=== PATIENT | female | born 2005 | race Caucasian/White ===

== ENCOUNTER 2024-12-28 08:30 | Outpatient (RCR) | payer OTHER, SELFPAY | END 2025-04-27 23:59 | disposition home or self-care (01) | PROVIDERS: PCP Obstetrics & Gynecology; Visit Provider Obstetrics & Gynecology | DX: N94.10 Unspecified dyspareunia (principal); Z51.89 Encounter for other specified aftercare | CPT/HCPCS: 97112; 97140; 97161 ==

== ENCOUNTER 2025-03-19 21:01 | Emergency (ER) | payer OTHER, SELFPAY ==
--- OUTSIDE RECORDS SUMMARY | 2025-03-19 21:03 | XMS_ITS | Clinical Summary ---
Author Organization [facility] Address [address] [address] Phone Care Team Providers Care Water Plumber Name Role Phone Unavailable Primary Care Provider Unavailabl e Immunizations Name Administration Dates Next Due COVID-19 Vaccine: Pfizer Dos e 1 (Purple- 12+ Yrs) [facility] 03/21/2021 COVID-19 Vaccine: Pfizer Dos e 2 (Purple- 12+ Yrs) [facility] 04/11/2021 Influenza Vaccine (6 months - 64 Years) Quad PF Syringe (Flu Clinic) 12/14/2017(Deferred: Invalid Dose - [place] Excursion Please refer to patient communication in Spring 2019; scope of potential impact to this patient only includes flu vaccine(s).) Tdap (7 years and older) 04/28/2023 Social History Tobacco Use Types Packs/Day Years Used Date Smoking Tobacco: Never Assessed Comments Unknown Sex and Gender Information Value Date Recorded Sex Assigned at Not on file Legal Sex Female 7:16 PM LEAD SLOT TECHNICIAN Gender Identity Not on file Sexual Orientation Not on file Plan of Treatment Health Maintenance Due Date Last Done Comments Cervical Cancer Screening 2003 Last pap w/ HPV Testing 2003 Last pap w/o HPV Testing 2003 HPV Vaccine (Standing Order) (1 - 3-dose series) 2018 Chlamydia Screening 2019 Meningococcal B Vaccine (Sta nding Order) (1 of 2 - Standard) 2019 ADULT COMPLETE PHYSICAL AGE 19-21 YRS 2022 Hepatitis B Vaccine (Standin g Order) (1 of 3 - 19+ 3-dose series) 2022 TETANUS (Standing Order) 04/28/2033 04/28/2023 PERTUSSIS (Standing Order) Completed 04/28/2023 Pneumococcal/PCV20 Vaccine: Pediatrics (2-5 yrs) and At-Risk Patients (6-49 yrs) (Standing Order) Aged Out No longer eligible b ased on patient's age to complete this topic Insurance [facility]
--- OUTSIDE RECORDS SUMMARY | 2025-03-19 21:03 | XMS_ITS | Encounter Summary ---
Author Organization [facility] Address [address] [place] [address] [address] [place] [address] Care Team Providers Care Correctional Supervisor Lieutenant Name Role Phone Roberto Josefina Katie HINOJOSA-LPC Primary Care Provider Josefina Mejia APRN-LPC Unavailable [phone] Encounter Details Date Type Department Care Team (Late Contact Info) Description 02/14/2025 Orders Only [facility] [address] [place] [address] Di Buckner LPN [address] [place], [place] [id number] Social History Tobacco Use Types Packs/Day Years Used Date Smoking Tobacco: Never Smokeless Tobacco: Never Comments:No Vape Alcohol Use Standard Drinks/Week Comments No 0 (1 standard drink = 0.6 oz pur e alcohol) PHQ-2 Answer Date Recorded PHQ-2 Total 0 06/25/2024 Abuse/Neglect Answer Date Recorded Member of Clubs or Organizations Not on file 08/30/2024 Does the patient display any signs or symptoms of abuse or neglect? No 08/30/2024 Comments No Sex and Gender Information Value Date Recorded Sex Assigned at Female 10/19/2019 12:05 PM BREAD PANNER Legal Sex Female 4:52 AM CDT Gender Identity Female 10/19/2019 12:05 PM BREAD PANNER Sexual Orientation Not on file documented as of this encounter Plan of Treatment Upcoming Encounters Date Type Department Care Team (Late Contact Info) Description 06/02/2025 3:20 PM CDT Office Visit [facility] [address] [place] [address] [place] [address] Lorena De Luna MD [address] [place] [address] Discharge Disposition: Home, Self Care documented as of this encounter Visit Diagnoses Not on filedocumented in this encounter Care Teams Correctional Supervisor Lieutenant Relationship Specialty Start Date End Date Josefina Mejia APRN-CNP [address] [place] [id number] PCP - General PICKING MACHINE OPERATOR HELPER - Family Medicine 02/11/23 Josefina Mejia APRN-CNP [address] [place] [id number] PCP - Attributed Provider 03/11/23 documented as of this encounter
--- OUTSIDE RECORDS SUMMARY | 2025-03-19 21:03 | XMS_ITS | Encounter Summary ---
Author Organization [facility] Address [address] [place] [address] [address] [place] [address] Care Team Providers Care Assistant Shift Supervisor Name Role Phone Josefina Mejia HISTORIC SITES REGISTRAR-DIE GRINDER Primary Care Provider Josefina Mejia HISTORIC SITES REGISTRAR-DIE GRINDER Unavailable [phone] Encounter Details Date Type Department Care Team (Late st Contact Info) Description 02/14/2025 10:30 AM CDT Office Visit [facility] [address] [place] [address] Josefina Mejia, HISTORIC SITES REGISTRAR-DIE GRINDER [address] [place] [address] [place] [address] Adjustment disorder with depressed mood (Primary Dx); Psychophysiological insomnia; JULIANA (generalized anxiety disorder); Intractable chronic migraine without aura and without status migrainosus Discharge Disposition: Home, Self Care Social History Tobacco Use Types Packs/Day Years [...] Sex Assigned at Female 10/19/2019 12:05 PM PATIENT ASSISTANT Legal Sex Female 4:52 AM CDT Gender Identity Female 10/19/2019 12:05 PM PATIENT ASSISTANT Sexual Orientation Not on file documented as of this encounter Progress Notes * Josefina Mejia Katie, HISTORIC SITES REGISTRAR-DIE GRINDER - 02/14/2025 10:25 AM CDT Assessment / Plan Adjustment disorder with depressed mood - buPROPion (WELLBUTRIN XL) 150 mg tablet (24 hr); Take 1 tablet (150 mg) by mouth 1 time per day Dispense: 60 tablet; Refill: 1 Psychophysiological insomnia - hydrOXYzine (ATARAX) 25 mg tablet; Take 0.5-1 tablets (12.5-25 mg) by mouth every 6 hours as needed for other (Specify) (anixety/insomnia) Dispense: 30 tablet; Refill: 3 JULIANA (generalized anxiety disorder) - escitalopram (LEXAPRO) 20 mg tablet; Take 1.5 tablets (30 mg) by mouth 1 time per day Dispense: 135 tablet; Refill: 0 Intractable chronic migraine without aura and without status migrainosus Other orders - FOLLOW UP FAMILY MEDICINE; Future Plan: - Continue lexapro 30mg daily - Continue hydroxyzine PRN - Continue prazosin at bedtime - Continue therapy - Start wellbutrin XL 150mg daily in the morning. Avoid binge drinking. - Monitor headaches for now, reach out to neurology if continue to worsen Recheck in 6 weeks, okay for telemedicine Follow Up Orders Placed This Encounter Procedures FOLLOW UP FAMILY MEDICINE Standing Status: Future Expected Date: 03/28/2025 Expiration Date: 08/16/2026 Reason for Follow Up: Clinic Visit Who is this follow-up with?: Me Reason for Follow Up Comment (VISIBLE TO PATIENT): telemedicine medication recheck Discussed assessed disease process(s). Patient verbalized understanding on recommendations and education. Wishes to proceed with above plan. Had no further concerns or complaints. Encouraged patient to call clinic should any questions arise or if symptoms worsen/do not improve. Benefits risks and side effects of new medications reviewed. After visit summary was given to patient. HPI / History / ROS HPI Kristine Guajardo is a 19yr old female who presents for a telemedicine visit for a recheck of mood/headaches. She does follow with neurology, currently taking topamax, imitrex,and emgality. Start emgality in August. She feels headaches have gotten worse. She is currently taking lexapro 30mg daily for her mod. She also takes prazosin 4mg at bedtime for nightmares. She has hydroxyzine to use PRN as well (uses nightly). She reports more symptoms of depression since her spring started. She does question some situational depression due to upcoming move/graduation. She is not enjoying activities she once did. Denies SI/HI. Does therapy every 1-2 weeks, thru her school. She's had a few panic attacks as well. Telemedicine visit started 1026 and ended 1033. City and State patient is located in; [place], [place], patient's home City and State provider is located in; [place], [place]. Patient was seen via telemedicine due to Patient Preference. Mode of transmission was interactive audio and video except if done by radiology then store and forward. Medications Outpatient Medications Prior to Visit Medication Sig Dispense Refill triamcinolone acetonide (KENALOG,ARISTOCORT) 0.1 % ointment Apply topically 2 times a day 30 g 1 topiramate (TOPAMAX) 100 mg tablet TAKE 1 TABLET(100 MG) BY MOUTH TWICE DAILY 60 tablet 0 prazosin (MINIPRESS) 2 MG CAPS TAKE 2 CAPSULES(4 MG) BY MOUTH EVERY NIGHT AT BEDTIME 60 capsule 0 escitalopram (LEXAPRO) 20 mg tablet TAKE 1 AND 1/2 TABLETS(30 MG) BY MOUTH DAILY 45 tablet 0 galcanezumab-gnlm (EMGALITY) 120 MG/ML subcutaneous injection (pen) Inject 240 mg under the skin 1 time a MONTH Loading dose 2 mL 0 galcanezumab-gnlm (EMGALITY) 120 MG/ML subcutaneous injection (pen) Inject 120 mg under the skin Once every 4 (four) WEEKS Maintenance dose, start 1 month after loading dose 1 mL 12 sumatriptan (IMITREX) 100 mg tablet Take 1 tablet (100 mg) by mouth as needed for migraine Take at onset of headache, may repeat in 2 hours if needed. 12 tablet 12 lidocaine (XYLOCAINE) 2 % GEL Apply a pea-sized amount to the affected area daily prn 85 mL 1 drospirenone-ethinyl estradiol (SHOSHANA) 3-0.02 mg tablet Take 1 tablet by mouth 1 time per day Skip placebo week. 84 tablet 4 hydrOXYzine (ATARAX) 25 mg tablet Take 0.5-1 tablets (12.5-25 mg) by mouth every 6 hours as needed for other (Specify) (anixety/insomnia) 30 tablet 3 tacrolimus (PROTOPIC) 0.1 % ointment Apply to affected areas of eyelids and underarms twice daily as needed. 30 g 2 ketoconazole (NIZORAL) 2% shampoo Lather into a damp scalp and ears once every 72 hours, allow to sit on for 5-10 minutes, then rinse out. Complete for 4 weeks, then 1-2 times per week for prevention. 240 mL 6 betamethasone dipropionate (DIPROSONE) 0.05 % LOTN Apply to the scalp every night at bedtime for 2 weeks, then 3 times weekly as needed. Avoid use on the face. 60 mL 1 melatonin 3 mg tablet Take 3 mg by mouth as needed. No facility-administered medications prior to visit. Allergies No Known Allergies ROS Review of Systems ROS as indicated in HPI. Physical / Results LMP: 02/06/2023 Physical Exam Constitutional: Appearance: Normal appearance. Pulmonary: Effort: Pulmonary effort is normal. Neurological: General: No focal deficit present. Mental Status: She is alert and oriented to person, place, and time. Psychiatric: Mood and Affect: Mood normal. Behavior: Behavior normal. Thought Content: Thought content normal. Judgment: Judgment normal. documented in this encounter Plan of Treatment Upcoming Encounters Date Type Department Care Team (Late st Contact Info) Description 06/02/2025 3:20 PM CDT Office Visit [address] [place] [address] Lorena De Luna MD [address] [place] [id number] Discharge Disposition: Home, Self Care documented as of this encounter Visit Diagnoses Diagnosis Adjustment disorder with depressed mood- Primary Psychophysiological insomnia Persistent disorder of initiating or maintaining sleep JULIANA (generalized anxiety disorder) Generalized anxiety disorder Intractable chronic migraine without aura and without status migrainosus Chronic migraine without aura, with intractable migraine, so stated, without mention of status migrainosus documented in this encounter Care Teams Assistant Shift Supervisor Relationship Specialty Start Date End Date Josefina Mejia APRN-AMY [address] [place] [address] PCP - General SHOE MAKER - Family Medicine 02/11/23 Josefina Mejia APRN-AMY [address] [place] [address] PCP - Attributed Provider 03/11/23 documented as of this encounter
--- OUTSIDE RECORDS SUMMARY | 2025-03-19 21:03 | XMS_ITS | Encounter Summary ---
Author Organization [facility] Address [address] [place] [address] [address] [place] [address] Care Team Providers Care Handle Sander Operator Name Role Phone Josefina Mejia APRN-AMY Primary Care Provider Josefina Mejia APRN-RATE INSERTER Unavailable [phone] Reason for Visit * Reason Comments Refill Request Encounter Details Date Type Department Care Team (Late st Contact Info) Description 03/03/2025 Refill [facility] [address] [place] [address] Josefina Mejia, BANQUET SUPERVISOR-RATE INSERTER [facility] [place] [address] Refill Request Social History Tobacco Use Types Packs/Day Years [...] Sex Assigned at Female 10/19/2019 12:05 PM CAFE HELPER Legal Sex Female 4:52 AM CDT Gender Identity Female 10/19/2019 12:05 PM CAFE HELPER Sexual Orientation Not on file documented as of this encounter Nursing Notes * Josefina Mejia APRN-CNP - 03/03/2025 2:19 PM CDT Refill sent, due for recheck appointment. * Di Buckner LPN - 03/03/2025 1:50 PM CDT Refill request for: prazosin (MINIPRESS) 2 MG CAPS Last appt: 02/14/25 Next appt: none Last refill: 01/27/25 60 tabs x 0 Refill request for: topiramate (TOPAMAX) 100 mg tablet Last refill: 01/27/25 60 tabs x 0 Plan: - Continue lexapro 30mg daily - [...] After visit summary was given to patient. documented in this encounter Plan of Treatment Upcoming Encounters Date Type Department Care Team (Late st Contact Info) Description 06/02/2025 3:20 PM CDT Office Visit [address] [place] [id number] Lorena De Luna MD [address] [place] [address] Discharge Disposition: Home, Self Care documented as of this encounter Visit Diagnoses Diagnosis Nightmares Other dysfunctions of sleep stages or arousal from sleep Chronic nonintractable headache, unspecified headache type documented in this encounter Care Teams Handle Sander Operator Relationship Specialty Start Date End Date Josefina Mejia APRN-CNP [address] [facility] [place] [address] PCP - General WHEEL FILLER - Family Medicine 02/11/23 Josefina Mejia APRN-CNP [address] [facility] [place] [address] PCP - Attributed Provider 03/11/23 documented as of this encounter
--- OUTSIDE RECORDS SUMMARY | 2025-03-19 21:04 | XMS_ITS | Clinical Summary ---
Author Organization [facility] Address [address] [place] [address] [address] [place] [address] Care Team Providers Care Pasteuriser Operator Name Role Phone Josefina Mejia APRN-ELECTRON GUN ASSEMBLER Primary Care Provider Josefina Mejia APRN-ELECTRON GUN ASSEMBLER Unavailable [phone] Allergies No known active allergies Medications melatonin 3 mg tablet Take 3 mg by mouth as needed. Active tacrolimus (PROTOPIC) 0.1 % ointmentIndicatio ns:Atopic dermatitis, unspecified type Apply to affected areas of eyelids and underarms twice daily as needed. 30 g 2 023 Active ketoconazole (NIZORAL) 2% shampooIndication s:Atopic dermatitis, unspecified type Lather into a damp scalp and ears once every 72 hours, allow to sit on for 5-10 minutes, then rinse out. Complete for 4 weeks, then 1-2 times per week for prevention. 240 mL 6 023 Active betamethasone dipropionate (DIPROSONE) 0.05 % LOTNIndications:A topic dermatitis, unspecified type Apply to the scalp every night at bedtime for 2 weeks, then 3 times weekly as needed. Avoid use on the face. 60 mL 1 023 Active drospirenone-ethi nyl estradiol (SHOSHANA) 3-0.02 mg tabletIndications :Acne vulgaris Take 1 tablet by mouth 1 time per day Skip placebo week. 84 tablet 4 024 Active sumatriptan (IMITREX) 100 mg tabletIndications :Intractable chronic migraine without aura and without status migrainosus Take 1 tablet (100 mg) by mouth as needed for migraine Take at onset of headache, may repeat in 2 hours if needed. 12 tablet 12 024 Active lidocaine (XYLOCAINE) 2 % GELIndications:Dy spareunia in female Apply a pea-sized amount to the affected area daily prn 85 mL 1 024 Active galcanezumab-gnlm (EMGALITY) 120 MG/ML subcutaneous injection (pen)Indications: Intractable chronic migraine without aura and without status migrainosus Inject 120 mg under the skin Once every 4 (four) WEEKS Maintenance dose, start 1 month after loading dose 1 mL 12 024 Active triamcinolone acetonide (KENALOG,ARISTOCO RT) 0.1 % ointmentIndicatio ns:Eczema of face Apply topically 2 times a day 30 g 1 025 Active buPROPion (WELLBUTRIN XL) 150 mg tablet (24 hr)Indications:Ad justment disorder with depressed mood Take 1 tablet (150 mg) by mouth 1 time per day 60 tablet 1 025 2025 Active hydrOXYzine (ATARAX) 25 mg tabletIndications :Psychophysiologi miles insomnia Take 0.5-1 tablets (12.5-25 mg) by mouth every 6 hours as needed for other (Specify) (anixety/insom mary) 30 tablet 3 025 Active escitalopram (LEXAPRO) 20 mg tabletIndications :JULIANA (generalized anxiety disorder) Take 1.5 tablets (30 mg) by mouth 1 time per day 135 tablet 025 Active ondansetron (ZOFRAN ODT) 4 mg dispersible tablet Take 4 mg by mouth every 6 hours as needed for nausea or vomiting 025 Active prazosin (MINIPRESS) 2 MG CAPSIndications:N ightmares TAKE 2 CAPSULES(4 MG) BY MOUTH EVERY NIGHT AT BEDTIME 60 capsule 025 Active topiramate (TOPAMAX) 100 mg tabletIndications :Chronic nonintractable headache, unspecified headache type TAKE 1 TABLET(100 MG) BY MOUTH TWICE DAILY 60 tablet 025 Active topiramate (TOPAMAX) 100 mg tabletIndications :Chronic nonintractable headache, unspecified headache type TAKE 1 TABLET(100 MG) BY MOUTH TWICE DAILY 60 tablet 025 2024 Discontinued prazosin (MINIPRESS) 2 MG CAPSIndications:N ightmares TAKE 2 CAPSULES(4 MG) BY MOUTH EVERY NIGHT AT BEDTIME 60 capsule 025 2024 Discontinued Active Problems Problem Noted Date Diagnosed Date Generalized anxiety disorder 09/20/2019 Resolved Problems Problem Noted Date Diagnosed Date Resolved Date Infective otitis externa 09/25/201009/2012 Subjective tinnitus 09/25/2010 10/27/20 12 Encounters Date Type Department Care Team Description 03/03/[address] [address] Josefina Mejia APPLICATION PROGRAMMER ANALYST-ELECTRON GUN ASSEMBLER Refill Request 02/14/2025 10:30 AM CDT Office Visit [address] [address] Josefina Mejia, APPLICATION PROGRAMMER ANALYST-AMY Adjustment disorder with depressed mood (Primary Dx); Psychophysiological insomnia; JULIANA (generalized anxiety disorder); Intractable chronic migraine without aura and without status migrainosus Discharge Disposition: Home, Self Care 02/14/2025 Orders Only [address] [address] Di Buckner LPN 02/01/[address] [address] Josefina Mejia APPLICATION PROGRAMMER ANALYST-ELECTRON GUN ASSEMBLER Refill Request 01/26/[address] [address] Josefina Mejia, APPLICATION PROGRAMMER ANALYST-ELECTRON GUN ASSEMBLER Refill Request from Last 3 Months Immunizations Immunization Administration Dates Next Due DTAP-HEP B-IPV 2003,2003 DTaP(Infanrix) 06/29/2008,09/26/2004,01/04/2004 FLU VACCINE INTRANASAL,trivalent 10/27/2012,08/18 FLU VACCINE MULTIDOSE 0.5mL(6MO+Fluzone/Flulaval,Afluria) 08/31/2015 FLU VACCINE SINGLE DOSE 0.5mL(6MO+Fluzone/Flulaval/Fluarix,3YR +Afluria) 10/03/2020 H1N1 Vaccine 10/31/2009 H1N1 vaccine intranasal 10/31/2009 HEP B VACCINE 01/04/2004,2003 HIB,unspecified 06/27/2004,2003,2003 HPV,quadrivalent 01/30/2015 HPV9 08/31/2015,04/19/2015 Hep A,peds/adol 05/11/2009,06/29/2008 INFLUENZA SINGLE DOSE 0.5ML 6 MONTHS AND UP 08/30/2021,11/12/2019,10/03/2018 IPV 06/29/2008,01/04/2004 Influenza Vaccine 09/17/2014,11/18/2006 Influenza Vaccine,unspecified 08/19/2024, 013 MMR 06/29/2008,06/27/2004 Meningococcal B,recombinant (Trumenba) 0,11/23/2019 Meningococcal MCV40(Menveo) 01/30/2015 Meningococcal MCV4P (Menactra) 11/23/2019,2014 Pfizer COVID-19 Vaccine (COM IRNATY) 12 Years And Up 08/19/2024 Pfizer COVID-19 Vaccine(Purp le Top) 12 Years and up 11/13/2021,04/11/2021,03/21/2021 Pneumococcal Conj PCV7 09/26/2004,2003,2003,08/10 TDAP 04/28/2023,01/30/2015 Tuberculin Skin Test PPD Intradermal 11/29/2019 Varicella 06/29/2008,06/27/2004 influenza split quadrivalent PF 08/21/20 23,08/30/2021,10/03/2020,11/12,10/03/2018 Family History Medical History Relation Comments Asthma Father Diabetes Maternal Grandfather type 2 Kidney Disease Maternal Grandfather stones Not otherwise listed - Cancer Maternal Grandfath er prostate Negative Maternal Grandmother Negative Mother Not otherwise listed - Cancer Paternal Aunt th yroid Cataracts Paternal Grandfather Not otherwise listed - Cancer Paternal Grandfath er prostate Not otherwise listed - Cancer Paternal Grandmoth er soft tissue Drug Abuse Neg Hx Hearing Loss Neg Hx Heart Disease Neg Hx Vision Loss Neg Hx Relation Status Comments Brother Alive Father Maternal Grandfather Maternal Grandmother Mother Paternal Aunt Paternal Grandfather Paternal Grandmother Social History Tobacco Use Types Packs/Day Years Used Date Smoking Tobacco: Never Smokeless Tobacco: Never Tobacco Cessation:Counseling Given: Not Answered Comments:No Vape Alcohol Use Standard Drinks/Week Comments [...] Sex Assigned at Female 10/19/2019 12:05 PM OVERLOCK WAISTLINE JOINER Legal Sex Female 4:52 AM CDT Gender Identity Female 10/19/2019 12:05 PM OVERLOCK WAISTLINE JOINER Sexual Orientation Not on file Last Filed Vital Signs Vital Sign Reading Time Taken Comments Blood Pressure 100/56 08/30/2024 10:13 AM CDT Pulse 70 08/30/2024 10:13 AM CDT Temperature 37.6 C (99.7 F) 06/28/2024 3:08 PM CDT Respiratory Rate 16 11/04/2023 10:4 2 AM OVERLOCK WAISTLINE JOINER Oxygen Saturation 99% 06/28/2024 3:08 PM CDT Inhaled Oxygen Concentration - - Weight 54.8 kg (120 lb 12.8 oz) 06/23/2023 8:25 AM CDT Height 171.3 cm (5' 7.44) 06/23/2023 8:25 AM CD T Body Mass Index 18.67 06/23/2023 8:25 AM CDT Plan of Treatment Upcoming Encounters Date Type Department Care Team (Late st Contact Info) Description 06/02/2025 3:20 PM CDT Office Visit [address] [place] [phone] Lorena De Luna MD [address] [place] [address] Discharge Disposition: Home, Self Care Health Maintenance Due Date Last Done Comments Hepatitis C Screening 2003 HIV One Time Screening Ages 15-65 2018 Lipid Screening 2024 Pap Smear 08/30/2027 08/30/2024 TDAP/TD VACCINE (3 - Td or Tdap) 04/28/2033 04/28/2023, 01/30/2015 Hepatitis B Vaccine Completed 01/04/2004, 2003, 2003, Additional history exists HPV Vaccine Completed 08/31/2015, 01/2015, 01/30/2015 Men B Vaccine Completed 05/25/2020, 11/23/2019 Covid-19 Vaccine Completed 08/19/2024, 03/2023, 11/13/2021, Additional history exists Influenza Vaccine Completed 08/19/2024, , 08/30/2021, Additional history exists Pneumococcal Vaccine (0-5yr; and At-risk 6-49yr) Aged Out No longer el igible based on patient's age to complete this topic Procedures Procedure Name Priority Date/Time Associated Diagnosis Comments LIQUID BASED PAP TEST Routine 08/30/2024 4:21 PM CDT Screening for malignant neoplasm of cervix from Last 3 Months or Most Recently Relevant to Health Maintenance Results * LIQUID BASED PAP TEST (08/30/2024 4:21 PM CDT) MEDICAL TECHNOLOGIST CLINICAL Interpretation Negative for intraepithelial lesion or malignancy 10:21 AM [facility] at 1021 CDT MEDICAL TECHNOLOGIST CLINICAL SPECIMEN ADEQUACY Satisfactory for evaluation, endocervical/transf ormation zone component present 10:21 AM [facility] MEDICAL TECHNOLOGIST CLINICAL Automated Examination ThinPrep - Imaged 10:21 AM [facility] CASE REPORT Gynecologic Cytology Report Case: [id number] Authorizing Provider: Rachel Wiggins MD Collected: 08/30/2024 1621 Ordering Location: [facility] Received: 08/30/2024 1621 [facility] First Screen: Genesis Kruse CT(ASCP) Specimen: LIQUID-BASED PAP SMEAR, Cervical and Endocervical 10:21 AM T [facility] Reflex Testing? No HPV 10:21 AM T [facility] Disclaimer The Pap test is a screening test with an inherent, irreducible false negative and false positive rate. A negative result does not exclude the possibility of clinical disease. Regular, routine screening is recommended. All gynecologic cytology is screened by cytotechnologists located at [facility] - [address] [place] [address]; [facility] - [address], [address] [place] [phone]; [facility] - [address] [place] [phone]; or [facility] - [address] [address]. 10:21 AM CDT [facility] EMBEDDED IMAGES 4 10:21 AM T [facility] Not Applicable ENDOCERVICAL STRUCTURE / Unknown 08/30/2024 4:21 PM CDT 08/30/2024 4:21 PM CDT Comment:Menstrual Status: No LMP recorded. us Rachel Wiggins MD PATHOLOGY Final Result [facility] [address] [address] [facility] [address] [place] [address] from Last 3 Months or Most Recently Relevant to Health Maintenance Care Teams Pasteuriser Operator Relationship Specialty Start Date End Date Josefina Mejia, APPLICATION PROGRAMMER ANALYST-ELECTRON GUN ASSEMBLER [address] [place] [id number] PCP - General SALES AND MARKETING ASSISTANT - Family Medicine 02/11/23 Josefina Mejia, APPLICATION PROGRAMMER ANALYST-ELECTRON GUN ASSEMBLER [address] [place] [address] PCP - Attributed Provider 03/11/23
[2025-03-19 21:11] VITALS: BP 115/77; PULSE 74; RESP 16; TEMP 37.1; O2SAT 98; BMI 19.4
--- NOTE | 2025-03-19 21:45 | ED.GENADULT ---
HPI - General Adult General Chief complaint: Head Injury/Pain Stated complaint: Hit by a softball- headaches, nausea, nosebleed Time Seen by Provider: 03/19/25 21:22 History of Present Illness HPI narrative: hit in R cheek with a foul ball softball around 1700, knocked her over but no LOC . laceration on R cheek steri strips applied by athletic trainier and bandaid over lac. 800mg ibuprofen and 4mg zofran around 1830. c/ o dizzy, headache, and a nose bleed that has resolved. nose is not bleeding in traige. patient ambulatory with normal gait. no hx of blood thinners 19-year-old woman presenting to the emergency department following an injury to her right cheek. About 4 hours prior to arrival was struck by fouled softball. Apparently knocked her down but there was no loss of consciousness. Was attended to by the hydraulic strainer operator at the time and Steri-Strips were applied due to laceration sustained. Has felt a little bit dizzy as well as a little bit lightheaded. Also expressed is a concern was a delayed nose bleed. I believe an hour later. No other drainage from the nose, ears has been noted. No notable neck or back pain. Related Data Home Medications ?Medication ?Instructions ?Recorded ?Confirmed drospirenone 3 mg-ethinyl 1 tab PO DAILY 08/21/23 03/19/25 estradiol 0.02 mg tablet escitalopram oxalate 20 mg tablet 20 mg PO DAILY 08/21/23 03/19/25 hydroxyzine HCl 25 mg tablet 25 mg PO DAILY PRN 08/21/23 03/19/25 topiramate 100 mg tablet 200 mg PO BID 08/21/23 03/19/25 galcanezumab-gnlm 120 mg/mL 120 mg subcut 09/18/24 02/03/25 subcutaneous pen injector (Emgality Pen) prazosin 1 mg capsule 3 mg PO QPM 09/18/24 03/19/25 acetaminophen [Tylenol] PO 02/03/25 02/03/25 ibuprofen PO 02/03/25 02/03/25 sumatriptan succinate 25 mg tablet See Rx Instructions PO .COMPLEX 02/03/25 03/19/25 bupropion HCl 150 mg 24 hr tablet, 150 mg PO DAILY 03/19/25 03/19/25 extended release Previous Rx's ?Medication ?Instructions ?Recorded ondansetron 4 mg disintegrating 4 mg PO Q6H PRN nausea and 02/03/25 tablet vomiting #10 tabs Allergies Allergy/AdvReac Type Severity Reaction Status Date / Time No Known Drug Allergies Allergy Verified 02/03/25 14:54 Review of Systems Status of ROS: Reports: 6 or more systems reviewed and unremarkable except as noted in History and below [facility] Social History Smoking Status: Never smoker Do you use any of these nicotine containing products: None Second hand tobacco smoke exposure: No How often do you have a drink containing alcohol: never How often do you have six or more drinks on one occasion: Never AUDIT-C Alcohol total score: 0 Non-prescribed substance use: denies use service: No Exam Narrative: Exam Narrative: Pleasant. NAD. Small amount of dried blood at the nares. There is some mild swelling and an irregular 3/4 inch long partial dermal lightly gap laceration at the right maxillary ridge. I do not appreciate any defect otherwise. Extraocular movements are full and intact. Pupils are equal and briskly reactive. Appears to be mentating normally. Neck is supple nontender. Back nontender. No fluid at external other canals. Examination of the nose is without any septal hematoma. No discrete source of bleeding identified. Const: Vital Signs, click to edit/add: Vital Signs - 24 hr 03/19/25 21:11 Temperature 98.8 F Pulse Rate [Pulse Oximeter] 74 Respiratory Rate 16 Blood Pressure [Ri ght Upper Arm] 115/77 Pulse Oximetry 98 Oxygen Delivery Me thod Room Air Documenting provider has reviewed patient's vital signs: yes Course Vital Signs Vital signs: Initial Vital Signs Temperature 98.8 F 03/19/25 21:11 Temperature Source Temporal Artery Scan 03/19/25 21:11 Pulse Rate 74 03/19/25 21:11 Respiratory Rate 16 03/19/25 21:11 Blood Pressure 115/77 03/19/25 21:11 Blood Pressure Mean 89 03/19/25 21:11 Blood Pressure Position Sitting 03/19/25 21:11 Pulse Oximetry 98 03/19/25 21:11 Oxygen Delivery Method Room Air 03/19/25 21:11 Vital Signs Temperature 98.8 F 03/19/25 21:11 Pulse Rate 74 03/19/25 21:11 Respiratory Rate 16 03/19/25 21:11 Blood Pressure 115/77 03/19/25 21:11 Pulse Oximetry 98 03/19/25 21:11 Oxygen Delivery Method Room Air 03/19/25 21:11 Temperature 98.8 F 03/19/25 21:11 Pulse Rate 74 03/19/25 21:11 Respiratory Rate 16 03/19/25 21:11 Blood Pressure 115/77 03/19/25 21:11 Pulse Oximetry 98 03/19/25 21:11 Oxygen Delivery Method Room Air 03/19/25 21:11 Medications Administered Medications: Discontinued Medications Generic Name Dose Route Start Last Admin Trade Name Jaiq PRN Reason Stop Dose Admin Ibuprofen 600 mg 03/19/25 22:07 03/19/25 22:12 Ibuprofen 200 Mg Tablet PO 03/19/25 22:08 600 mg ONCE ONE Administration Medical Decision Making MDM Narrative Medical decision making narrative: I think unlikely to need head imaging. Certainly may have sustained a facial fracture but I think doubtful. They have expressed concern that this delayed bleed represented something more significant. I would proceed with facial imaging at a minimum. Does not appear to be concussed at this time. Returned also to cleanse this wound. I think Steri-Strips will provide quite good wound approximation and actually diminish then scarring. Steri-Strips placed with benzoin which did provide good approximation and controlled bleeding. CT imaging of head and face independently reviewed by me looks to be without acute abnormality. Radiology over-read noting nothing further See patient discharge plan for further discussion can trim steri-strip ends as they begin to peel away. try to encourage steri-strips to remain on for 7 days; 5 days probably sufficient. Ultimately let them fall off as they will. try not to soak while steri-strips on. Antibiotic ointment will encourage steri-strips to fall off early. for further scar reduction/wound healing if desired -- after the scab falls off, can apply daily vitamin e oil or something like maderma or silicone-containing ointments or bandaids daily. especially protect from sun exposure for the first 9 - 12 months. Signs or symptoms of a concussion might be nausea or headache upon exertion which can also be an indication to back off that level of activity and reassess in a week.? Concussion can also be represented by smoldering nausea or smoldering headache, difficulty with concentration, mood lability, general somnolence, sense of persistent fog or dizziness/lightheadedness.? If these symptoms are becoming apparent and continuing beyond 7-10 days, be re-evaluated for further recommendations. Medical Records Medical records reviewed: Yes I reviewed the patient's medical records Discharge Plan Discharge Clinical Impression: Closed head injury, Laceration of face, Epistaxis Patient Disposition: Home w/ Parent or Adult Condition: Improved Additional Instructions: can trim steri-strip ends as they begin to peel away. try to encourage steri-strips to remain on for 7 days; 5 days probably sufficient. Ultimately let them fall off as they will. try not to soak while steri-strips on. Antibiotic ointment will encourage steri-strips to fall off early. for further scar reduction/wound healing if desired -- after the scab falls off, can apply daily vitamin e oil or something like maderma or silicone-containing ointments or bandaids daily. especially protect from sun exposure for the first 9 - 12 months. Signs or symptoms of a concussion might be nausea or headache upon exertion which can also be an indication to back off that level of activity and reassess in a week.? Concussion can also be represented by smoldering nausea or smoldering headache, difficulty with concentration, mood lability, general somnolence, sense of persistent fog or dizziness/lightheadedness.? If these symptoms are becoming apparent and continuing beyond 7-10 days, be re-evaluated for further recommendations. Prescriptions: No Action topiramate 100 mg tablet 200 mg PO BID escitalopram oxalate 20 mg tablet 20 mg PO DAILY drospirenone-ethinyl estradiol 3-0.02 mg tablet 1 tab PO DAILY hydroxyzine HCl 25 mg tablet 25 mg PO DAILY PRN prazosin 1 mg capsule 3 mg PO QPM Emgality Pen 120 mg/mL pen injector 120 mg subcut acetaminophen [Tylenol] PO ibuprofen PO ondansetron 4 mg tablet,disintegrating 4 mg PO Q6H PRN (Reason: nausea and vomiting) Qty: 10 0RF sumatriptan succinate 25 mg tablet See Rx Instructions PO .COMPLEX Rx Instructions: take 1 tab at onset of headache; if no relief may repeat 1 tab after at least 2 hrs; max = 4 tabs/24 hr PO bupropion HCl 150 mg tablet extended release 24 hr 150 mg PO DAILY Follow Up/Referrals: Provider,Not a Local [Primary Care Provider] - Stand Alone Forms: [employer] Info Instructions
--- NOTE | 2025-03-19 22:07 | CRLHL7_ITS ---
For Patients: As a result of the Century Cures Act, medical imaging exams and procedure reports are released immediately into your electronic medical record. You may view this report before your referring provider. If you have questions, please contact your health care provider. INDICATION: Trauma right face, injury TECHNIQUE: CT maxillofacial without i.v. contrast. Coronal and sagittal reformats were obtained. COMPARISON: None FINDINGS: Bone: No acute fractures or aggressive bone lesions are identified. Joint: The temporomandibular joints are unremarkable in appearance. Sinus: The sinuses are well-aerated with no significant mucosal thickening or retained secretions seen. The ostiomeatal units are patent. The nasal turbinates are normal. The nasal septum is midline and intact. Orbit: The visualized orbits are grossly unremarkable. Soft tissue: Unremarkable. IMPRESSION: 1. No acute osseous injuries or abnormalities are seen. Please note that all CT scans at this facility use dose modulation, iterative reconstruction, and/or weight-based dosing when appropriate to reduce radiation dose to as low as reasonably achievable. Dictated by: Isaías Cedillo MD @ 03/19/2025 22:43:04 (Electronically Signed)
--- NOTE | 2025-03-19 22:07 | CRLHL7_ITS ---
For Patients: As a result of the Century Cures Act, medical imaging exams and procedure reports are released immediately into your electronic medical record. You may view this report before your referring provider. If you have questions, please contact your health care provider. INDICATION: Closed head injury to right face TECHNIQUE: CT Head without i.v. contrast. Coronal and sagittal reformats were obtained. COMPARISON: None FINDINGS: CSF space: The ventricles are normal for age. Brain: No evidence of mass, acute infarction or hemorrhage is seen. No mass-effect or midline shift is seen. The brain parenchyma is otherwise normal in appearance with preservation of the simon-white matter junction. Calvarium: The visualized paranasal sinuses are well aerated. The mastoid air cells are clear. The visualized orbits are grossly unremarkable. The calvarium is unremarkable in appearance with no fractures identified. IMPRESSION: 1. No evidence of acute infarction, intracranial hemorrhage, or mass-effect seen. Please note that all CT scans at this facility use dose modulation, iterative reconstruction, and/or weight-based dosing when appropriate to reduce radiation dose to as low as reasonably achievable. Dictated by: Isaías Cedillo MD @ 03/19/2025 22:40:13 (Electronically Signed)
[2025-03-19] MEDS: IBUPROFEN 200 MG TABLET 600 MG PO (22:12)
--- OUTSIDE RECORDS SUMMARY | 2025-03-19 22:17 | XMS_ITS | Encounter Summary ---
Author Organization [facility] Address [address] [place] [address] [address] [place] [address] Care Team Providers Care Dairy Scientist Name Role Phone Josefina Mejia SPOTLIGHT OPERATOR-HYDROTEL OPERATOR Primary Care Provider Josefina Mejia SPOTLIGHT OPERATOR-HYDROTEL OPERATOR Unavailable [phone] Encounter Details Date Type Department Care Team (Late st Contact Info) Description 02/14/2025 10:30 AM CDT Office Visit [facility] [address] [place] [address] Josefina Mejia, SPOTLIGHT OPERATOR-HYDROTEL OPERATOR [address] [place] [address] [place] [address] Adjustment disorder with depressed mood (Primary Dx); [...] Sex Assigned at Female 10/19/2019 12:05 PM ASSESSMENT TECHNICIAN Legal Sex Female 4:52 AM CDT Gender Identity Female 10/19/2019 12:05 PM ASSESSMENT TECHNICIAN Sexual Orientation Not on file documented as of this encounter Progress Notes * Josefina Mejia Katie, SPOTLIGHT OPERATOR-HYDROTEL OPERATOR - 02/14/2025 10:25 AM CDT Assessment / [...] City and State patient is located in; [place], [place], patient's home City and State provider is located in; [place], [place]. Patient was seen via telemedicine due [...] Description 06/02/2025 3:20 PM CDT Office Visit [address] [place] [address] Lorena De Luna MD [address] [place] [address] Discharge Disposition: Home, Self Care documented as [...] migrainosus documented in this encounter Care Teams Dairy Scientist Relationship Specialty Start Date End Date Josefina Mejia APRN-AMY [address] [facility] [address] PCP - General COOK JELLY - Family Medicine 02/11/23 Josefina Mejai APRN-AMY [address] [facility] [address] PCP - Attributed Provider 03/11/23 documented as of this encounter
--- OUTSIDE RECORDS SUMMARY | 2025-03-19 22:17 | XMS_ITS | Encounter Summary ---
Author Organization [facility] Address [address] [place] [address] [address] [place] [address] Care Team Providers Care Doubling Machine Operator Name Role Phone Roberto Josefina Katie HINOJOSA-CREDIT UNION TELLER Primary Care Provider Josefina Mejia APRN-CREDIT UNION TELLER Unavailable [phone] Encounter Details Date Type Department Care Team (Late Contact Info) Description 02/14/2025 Orders Only [facility] [address] [place] [address] Di Buckner LPN [address] [place], [place] [id number] Social History Tobacco Use Types Packs/Day Years [...] Sex Assigned at Female 10/19/2019 12:05 PM VACCINATOR Legal Sex Female 4:52 AM CDT Gender Identity Female 10/19/2019 12:05 PM VACCINATOR Sexual Orientation Not on file documented as of this encounter Plan of Treatment Upcoming Encounters Date Type Department Care Team (Late Contact Info) Description 06/02/2025 3:20 PM CDT Office Visit [facility] [address] [place] [address] [place] [address] Lorena De Luna MD [address] [place] [address] Discharge Disposition: Home, Self Care documented as of this encounter Visit Diagnoses Not on filedocumented in this encounter Care Teams Doubling Machine Operator Relationship Specialty Start Date End Date Josefina Mejia APRN-CNP [address] [place] [address] PCP - General GUIDE ALPINE - Family Medicine 02/11/23 Josefina Mejia APRN-CNP [address] [place] [address] PCP - Attributed Provider 03/11/23 documented as of this encounter
--- OUTSIDE RECORDS SUMMARY | 2025-03-19 22:17 | XMS_ITS | Encounter Summary ---
Author Organization [facility] Address [address] [place] [address] [address] [place] [address] Care Team Providers Care Ferry Pilot Name Role Phone Josefina Mejia APRN-AMY Primary Care Provider Josefina Mejia APRN-DIE KEEPER Unavailable [phone] Reason for Visit * Reason Comments Refill Request Encounter Details Date Type Department Care Team (Late st Contact Info) Description 03/03/2025 Refill [facility] [address] [place] [address] Josefina Mejia, TECHNICAL ACCOUNT EXECUTIVE-DIE KEEPER [facility] [place] [address] Refill Request Social History Tobacco Use Types [...] Sex Assigned at Female 10/19/2019 12:05 PM [employer] Legal Sex Female 4:52 AM CDT Gender Identity Female 10/19/2019 12:05 PM [employer] Sexual Orientation Not on file documented as [...] Description 06/02/2025 3:20 PM CDT Office Visit [address] [place] [address] Lorena De Luna MD [address] [place] [address] Discharge Disposition: Home, Self Care documented as of this encounter Visit Diagnoses Diagnosis Nightmares Other dysfunctions of sleep stages or arousal from sleep Chronic nonintractable headache, unspecified headache type documented in this encounter Care Teams Ferry Pilot Relationship Specialty Start Date End Date Josefina Mejia APRN-CNP [address] [place] [address] PCP - General PRODUCTION MAINTENANCE TECHNICIAN - Family Medicine 02/11/23 Josefina Mejia APRN-CNP [address] [place] [address] PCP - Attributed Provider 03/11/23 documented as of this encounter
--- OUTSIDE RECORDS SUMMARY | 2025-03-19 22:17 | XMS_ITS | Clinical Summary ---
Author Organization [facility] [facility] Address [address] [address] Phone Care Team Providers Care Bulk Plant Manager Name Role Phone Unavailable Primary Care Provider [...] on file Legal Sex Female 7:16 PM STORAGE MANAGEMENT CONSULTANT Gender Identity Not on file Sexual Orientation [...] patient's age to complete this topic Insurance [facility]
--- OUTSIDE RECORDS SUMMARY | 2025-03-19 22:17 | XMS_ITS | Clinical Summary ---
Author Organization [facility] Address [address] [place] [address] [address] [place] [address] Care Team Providers Care Lead Athlete Name Role Phone Josefina Mejia APRN-SUPERVISOR PIPELINE Primary Care Provider Josefina Mejia APRN-SUPERVISOR PIPELINE Unavailable [phone] Allergies No known active allergies Medications melatonin [...] Type Department Care Team Description 03/03/[address] [address] Josefina Mejia HOG DROPPER-SUPERVISOR PIPELINE Refill Request 02/14/2025 10:30 AM CDT Office Visit [address] [address] Josefina Mejia, HOG DROPPER-AMY Adjustment disorder with depressed mood (Primary Dx); Psychophysiological insomnia; JULIANA (generalized anxiety disorder); Intractable chronic migraine without aura and without status migrainosus Discharge Disposition: Home, Self Care 02/14/2025 Orders Only [address] [address] Di Buckner LPN 02/01/[address] [address] Josefina Mejia HOG DROPPER-SUPERVISOR PIPELINE Refill Request 01/26/[address] [address] Josefina Mejia, HOG DROPPER-SUPERVISOR PIPELINE Refill Request from Last 3 Months Immunizations [...] Sex Assigned at Female 10/19/2019 12:05 PM TITLE CLERK AUTOMOBILE Legal Sex Female 4:52 AM CDT Gender Identity Female 10/19/2019 12:05 PM TITLE CLERK AUTOMOBILE Sexual Orientation Not on file Last Filed Vital Signs Vital Sign Reading Time Taken Comments Blood Pressure 100/56 08/30/2024 10:13 AM CDT Pulse 70 08/30/2024 10:13 AM CDT Temperature 37.6 C (99.7 F) 06/28/2024 3:08 PM CDT Respiratory Rate 16 11/04/2023 10:4 2 AM TITLE CLERK AUTOMOBILE Oxygen Saturation 99% 06/28/2024 3:08 PM CDT Inhaled Oxygen Concentration - - Weight 54.8 kg (120 lb 12.8 oz) 06/23/2023 8:25 AM CDT Height 171.3 cm (5' 7.44) 06/23/2023 8:25 AM CD T Body Mass Index 18.67 06/23/2023 8:25 AM CDT Plan of Treatment Upcoming Encounters Date Type Department Care Team (Late st Contact Info) Description 06/02/2025 3:20 PM CDT Office Visit [address] [place] [address] Lorena De Luna MD [address] [place] [address] Discharge Disposition: Home, Self Care Health Maintenance [...] BASED PAP TEST (08/30/2024 4:21 PM CDT) [facility] Interpretation Negative for intraepithelial lesion or malignancy 10:21 AM [facility] at 1021 CDT WHITESMITH SPECIMEN ADEQUACY Satisfactory for evaluation, endocervical/transf ormation zone component present 10:21 AM [facility]ESMITH Automated Examination ThinPrep - Imaged 10:21 AM [facility] CASE REPORT Gynecologic Cytology Report Case: [id number] Authorizing Provider: Rachel Wiggins MD Collected: 08/30/2024 1621 Ordering Location: [facility] Received: 08/30/2024 1621 [facility] First Screen: Genesis Kruse CT(ASCP) Specimen: LIQUID-BASED PAP SMEAR, Cervical and Endocervical 10:21 AM T [facility] Reflex Testing? No HPV 10:21 AM T [facility] Disclaimer The Pap test is a screening test with an inherent, irreducible false negative and false positive rate. A negative result does not exclude the possibility of clinical disease. Regular, routine screening is recommended. All gynecologic cytology is screened by cytotechnologists located at - [address] [place] [address]; [facility] - [address], [address] [place] [phone]; [facility] - [address] [place] [phone]; or [facility] - [address] [address]. 10:21 AM CDT [facility] EMBEDDED IMAGES 4 10:21 AM T [facility] Not Applicable ENDOCERVICAL STRUCTURE / Unknown 08/30/2024 4:21 PM CDT 08/30/2024 4:21 PM CDT Comment:Menstrual Status: No LMP recorded. us Rachel Wiggins MD PATHOLOGY Final Result [facility] [address] [address] [facility] [address] [place] [address] from Last 3 Months or Most Recently Relevant to Health Maintenance Care Teams Lead Athlete Relationship Specialty Start Date End Date Josefina Mejia, HOG DROPPER-SUPERVISOR PIPELINE [address] [place] [address] PCP - General POKER DEALER - Family Medicine 02/11/23 Josefina Mejia, HOG DROPPER-SUPERVISOR PIPELINE [address] [place] [address] PCP - Attributed Provider 03/11/23
== END 2025-03-19 23:20 | disposition home or self-care (01) ==
PROVIDERS: Emergency Provider Family Medicine
DX: S01.411A Laceration without foreign body of right cheek and temporomandibular area, initial encounter (principal); R04.0 Epistaxis; W21.03XA Struck by baseball, initial encounter
CPT/HCPCS: 70450; 70486; 99284; A9270